=== PATIENT | female | born 1970 | race African-American/Black ===

== ENCOUNTER 2022-07-05 10:32 | Emergency (ER) | payer OTHER, SELFPAY ==
--- NOTE | ~2022-07-05 | XR_ITS ---
EXAMINATION: XR knee LT min 4V DATE: 07/05/2022 11:18 INDICATION: Left knee pain TECHNIQUE: Four views of the left knee were obtained. COMPARISON: None. FINDINGS: Alignment is normal. No fracture or osteochondral lesion. There is mild tricompartmental os teoarthritis characterized by tiny marginal osteophytes. No joint effusion/synovitis. There is mild soft tissue swelling of the knee. IMPRESSION: 1. Knee soft tissue swelling without acute osseous abnormality. Reviewed, dictated and finalized at location A.
[2022-07-05 10:50] VITALS: BP 167/84; PULSE 77; RESP 18; TEMP 36.4; O2SAT 100
--- NOTE | 2022-07-05 11:42 | ED.GENADULT ---
HPI - General Adult General Chief complaint: Extremity Problem,Nontraumatic Stated complaint: Left Knee Pain History of Present Illness HPI narrative: Loss patient is a 51-year-old -[place] female who presents to the [facility] via POV for evaluation of left knee pain and swelling that has been present for 3 weeks. She reports pain in located in front of knee. She reports her pain to be 7-8/10. Unable to described the quality. Sitting and RICE therapy improves pain. Standing and walking worsens pain. Related Data Home Medications Medication Instructions Recorded Confirmed hydrochlorothiazide 25 mg tablet 25 mg PO DAILY 07/05/22 07/05/22 Allergies Allergy/AdvReac Type Severity Reaction Status Date / Time No Known Allergies Allergy Verified 07/05/22 11:50 Review of Systems Review of Systems: Pertinent negatives: injury, fever, chills, sweats, change in appetite, poor p.o. intake, malaise, calf tenderness, skin color changes, rash, warmth, numbness, tingling, loss of sensation, deformity, decreased range of motion, weakness, difficulty with ambulation/coordination, nausea, vomiting, lymphadenopathy, shortness of breath, chest pain, heart palpitations, and heart murmur. PMFSH Comments I have reviewed and agree with the patient's past medical, surgical, social, and family hx as documented by the RN. There is no relevant family history pertinent to the presenting complaint. Exam Narrative: GENERAL: Well-appearing, well-nourished, and in no acute distress. HEAD: Normocephalic, atraumatic. NECK: Supple. No Lymphadenopathy or nuchal rigidity appreciated. CHEST: Bilateral lung rashid are clear to auscultation. No respiratory distress. No evidence of cough or pleuritic cp upon examination. HEART: Regular rate and rhythm. No murmur, gallop, or rub heard. EXTREMITIES: Mild generalized swelling noted to anterior aspect of left knee. Moderate pain palpated over left patellar tendon. No evidence of injury, decreased ROM, cyanosis, hematoma, laceration, abrasion, deformity, rash, or puncture. No evidence of pain with active/passive ROM. No evidence of dislocation, ligament laxity, effusion, or pain at rest. Pulses palpable at 2+, strength 5/5, and cap refill < 3 seconds in affected extremity. DTRs normal. Slowed gait. Ambulates with left sided limp. SKIN: Warm, dry, no rash. NEURO: No focal deficits. Alert and oriented x3. SPECIAL OBSERVATIONS: Smiling. Laughing. Course Course Level of Care: Express Care Visit Vital Signs Vital signs: Vital Signs Temperature 97.5 F L 07/05/22 10:50 Pulse Rate 77 07/05/22 10:50 Respiratory Rate 18 07/05/22 10:50 Blood Pressure 167/84 H 07/05/22 10:50 Pulse Oximetry 100 07/05/22 10:50 Oxygen Delivery Room Air 07/05/22 10:50 Temperature 97.5 F L 07/05/22 10:50 Pulse Rate 77 07/05/22 10:50 Respiratory Rate 18 07/05/22 10:50 Blood Pressure 167/84 H 07/05/22 10:50 Pulse Oximetry 100 07/05/22 10:50 Oxygen Delivery Room Air 07/05/22 10:50 Medical Decision Making Differential Diagnosis Differential Diagnosis: Sprain, strain, cellulitis, open fracture, closed fracture, gout Vital Signs Vital Signs: Vital Signs Temperature 97.5 F L 07/05/22 10:50 Pulse Rate 77 07/05/22 10:50 Respiratory Rate 18 07/05/22 10:50 Blood Pressure 167/84 H 07/05/22 10:50 Pulse Oximetry 100 07/05/22 10:50 Oxygen Delivery Room Air 07/05/22 10:50 Temperature 97.5 F L 07/05/22 10:50 Pulse Rate 77 07/05/22 10:50 Respiratory Rate 18 07/05/22 10:50 Blood Pressure 167/84 H 07/05/22 10:50 Pulse Oximetry 100 07/05/22 10:50 Oxygen Delivery Room Air 07/05/22 10:50 Due to an elevated blood pressure, I had a detailed discussion with the patient and/or guardian regarding the need for follow-up with their primary care provider within the next 3-4 days. Patient verbalized understanding and agreed. Imaging Data My impression: negative
== END 2022-07-05 11:53 | disposition home or self-care (01) ==
PROVIDERS: Emergency Provider Nurse Practitioner Family; PCP Nurse Practitioner
DX: M76.52 Patellar tendinitis, left knee (principal); I10 Essential (primary) hypertension
CPT/HCPCS: 73564; 99203; G0463